=== PATIENT | female | born 1985 | race Caucasian/White ===

== ENCOUNTER 2019-01-22 20:55 | Emergency (ER) | payer BC ==
--- NOTE | 2019-01-22 22:34 | ER Document Report ---
ED Breast Problem - General Chief Complaint: Breast Problem Stated Complaint: LEFT SIDE PAIN Time Seen by Provider: 01/22/19 22:29 Notes: 33-year-old female with history of bilateral breast augmentation and presents to the emergency department with left breast pain x2 days that got acutely worse today. She called her plastic surgeon, Dr. Rodriguez, who recommended that he can see her first thing in the morning if she can obtain some pain control to bridge her. Her breast surgery was 3 years ago and there is no problems prior to. 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 She denies any fevers or chills, denies shortness of breath or central chest pain, nausea or vomiting, redness or swelling at the site of her left breast. She said the pain is acute and even when she self splints the pain is still there but that is the only thing that helps make it bearable. TRAVEL OUTSIDE OF THE [place] IN LAST 30 DAYS: No - Related Data Allergies/Adverse Reactions: No Known Drug Allergies Allergy (Verified 01/22/19 20:58) Past Medical History - Social History Smoking Status: Never Smoker Family History: None - Immunizations Hx Diphtheria, Pertussis, Tetanus Vaccination: Yes Review of Systems - Review of Systems Constitutional: See HPI EENT: No symptoms reported Cardiovascular: See HPI Respiratory: See HPI Gastrointestinal: See HPI Genitourinary: No symptoms reported Female Genitourinary: No symptoms reported Musculoskeletal: No symptoms reported Skin: See HPI Hematologic/Lymphatic: No symptoms reported Neurological/Psychological: No symptoms reported Physical Exam - Vital signs Vitals: Temp Pulse Resp BP Pulse Ox 98.0 F 113 H 22 H 130/80 H 99 01/22/19 21:00 01/22/19 21:00 01/22/19 21:00 01/22/19 21:00 01/22/19 21:00 Course - Re-evaluation Re-evalutation: 01/22/19 22:33 Nontoxic-appearing. There is no evidence of infection so I have no concern for abscess or cellulitis. Because of patient's history and upon inspection plan is pain control until she can see her plastic surgeon in the morning. I gave her strict return precautions. STable for discharge. 01/22/19 22:34 01/22/19 22:34 - Vital Signs Vital signs: Temp Pulse Resp BP Pulse Ox 98.0 F 113 H 22 H 130/80 H 99 01/22/19 21:00 01/22/19 21:00 01/22/19 21:00 01/22/19 21:00 01/22/19 21:00 Discharge - Discharge Clinical Impression: Breast pain, left Condition: Stable Disposition: HOME, SELF-CARE Additional Instructions: You were seen in the emergency department this evening for left breast pain. Because you have good close follow-up with Dr. Rodriguez and his recommendation was pain control prior to seeing him I am discharging you with the intention that you will see him first thing in the morning. I have given you a shot of Toradol 30 mg intramuscularly once and I am sending you home with a short course of pain medication called [place] with some Zofran to help with nausea. If your pain gets acutely worse, you are having respiratory distress, you develop a fever, or you have any other concerning symptoms please return to the emergency department.
[2019-01-22] MEDS ORDERED: KETOROLAC TROMETHAMINE 60 MG/2 ML SDV IM ONE (22:35)
[2019-01-22] MEDS ORDERED: HYDROCODONE/ACETAMINOPHEN 5-325 MG (6 TAB/ER DISP) PO PRN (22:35)
[2019-01-22] MEDS ORDERED: ACETAMINOPHEN 325 MG TABLET PO ONE (22:35)
[2019-01-22] MEDS ORDERED: ONDANSETRON ODT 4 MG TAB (6 TAB/ER DISP) PO PRN (22:36)
[2019-01-22 23:32] VITALS: BP 116/76
== END 2019-01-22 23:32 | disposition home or self-care (01) ==
LOC: ER 20:55
DX: N64.4 Mastodynia (principal)
CPT/HCPCS: 99283; 96372; J1885

== ENCOUNTER 2019-06-08 17:42 | Emergency (ER) | payer BC ==
[2019-06-08] MEDS ORDERED: PROMETHAZINE HCL INJ 25 MG/1 ML VIAL ONE (18:19)
[2019-06-08] MEDS ORDERED: PROMETHAZINE HCL INJ 25 MG/1 ML VIAL IV ONE (18:20)
[2019-06-08] MEDS ORDERED: NORMAL SALINE 1000 ML 1,000 ML IV ONE (18:21)
--- NOTE | 2019-06-08 18:24 | ER Document Report ---
ED General - General Chief Complaint: Palpitations Stated Complaint: PALPITATIONS Time Seen by Provider: 06/08/19 18:09 Primary Care Provider: SANTOS RDZ MD [Primary Care Provider] - Follow up as needed TRAVEL OUTSIDE OF THE [place] IN LAST 30 DAYS: No - HPI Notes: Patient is a 34-year-old female who presents emergency department for evaluation of palpitations. She was at work when they started approximately 3 PM. She was not doing anything out of the ordinary. She states she also started feeling nauseated after that. She denies any associated pain. She states she is just feeling "not well." Prior to that she been eating drinking normally. Normal urination and bowel movements. She denies any chest pain or shortness of breath. No coughing. - Related Data Allergies/Adverse Reactions: No Known Drug Allergies Allergy (Verified 06/08/19 18:55) amoxicillin Adverse Reaction (Verified 06/08/19 18:55) Home Medications: Prozac 20 mill grams daily Past Medical History - General Information source: Patient - Social History Smoking Status: Never Smoker Drug Abuse: None Family History: None Renal/ Medical History: Denies: Hx Peritoneal Dialysis Past Surgical History: Reports: Hx Breast Surgery - augmentation - Immunizations Hx Diphtheria, Pertussis, Tetanus Vaccination: Yes Review of Systems - Review of Systems Constitutional: See HPI EENT: No symptoms reported Cardiovascular: See HPI Respiratory: No symptoms reported Gastrointestinal: See HPI Genitourinary: No symptoms reported Musculoskeletal: No symptoms reported Skin: No symptoms reported Neurological/Psychological: No symptoms reported Physical Exam - Vital signs Vitals: BP 121/68 06/08/19 18:01 - Notes Notes: Patient is a 34-year-old female who appears her stated age, no acute distress. She is actively vomiting in the room. Vital signs reviewed, please refer to chart. Head is normocephalic, atraumatic. Pupils equal round, reactive to light. Neck is supple without meningismus. Heart is mildly tachycardic with normal S1-S2. Lungs are clear to auscultation bilaterally. Abdomen is soft, nontender, normoactive bowel sounds throughout. Extremities without cyanosis, clubbing. Posterior calves are nontender. Peripheral pulses are equal. Skin is warm and dry. Patient is awake, alert, neurological exam is nonfocal. Course - Re-evaluation Re-evalutation: 06/08/19 18:23 Patient presents emergency department for evaluation of palpitations. On arrival she is actively vomiting. Her EKG reveals a borderline prolonged QT interval. Given this information I am inclined to treat her with a different antiemetic and Zofran. She is given 25 mg of IV Phenergan, piggyback on 12 a liter of normal saline. Laboratory investigations obtained, we will continue to monitor. 06/08/19 20:51 Patient feeling significantly improved. Heart rate in the 70s. No significant ectopy or abnormalities on monitor. Her laboratory investigations are unremarkable. She is feeling significantly improved. My suspicion is that this patient has a viral illness at this time. We will send her home with 4 mg ODT Zofran. She is told to try clear liquids, rest. Follow-up with primary care this week. Return to the ED with worsening or new concerning symptoms of any sort. - Vital Signs Vital signs: Temp Pulse Resp BP Pulse Ox 15 130/75 H 99 06/08/19 19:01 06/08/19 19:01 06/08/19 19:01 - Laboratory Result Diagrams: 06/08/19 18:15 06/08/19 18:15 Laboratory results interpreted by me: 06/08/19 06/08/19 18:15 19:38 Glucose 117 H Urine Blood SMALL H Urine Ascorbic Acid 40 H - EKG Interpretation by Me Additional EKG results interpreted by me: 06/08/19 20:52 Sinus tachycardia with rate of 100 bpm. Normal axis and intervals. Borderline prolonged QT interval. No acute ST changes concerning for ischemia or infarct ion. Discharge - Discharge Clinical Impression: Palpitations Nausea and vomiting Qualifiers: Vomiting type: unspecified Vomiting Intractability: non-intractable Qualified Code(s): R11.2 - Nausea with vomiting, unspecified Condition: Stable Disposition: HOME, SELF-CARE Instructions: Palpitations (Irregular or Rapid Heartrate) ([facility]), Vomiting ([facility]) Additional Instructions: Rest, stay well-hydrated with small, frequent sips of fluids. Zofran as needed for nausea. Follow-up with your primary care physician this week. If you develop pain, difficulty breathing, worsening symptoms of any sort, return immediately to the emergency department for evaluation. Referrals: SANTOS RDZ MD [Primary Care Provider] - Follow up as needed
[2019-06-08 19:20] LABS: ABSOLUTE BASOPHILS # (AUTO) 0.1 10^3/uL (0.0-0.2); ABSOLUTE EOSINOPHILS # (AUTO) 0.2 10^3/uL (0.0-0.6); ABSOLUTE LYMPHOCYTES (AUTO) 2.2 10^3/uL (0.5-4.7); ABSOLUTE MONOCYTES (AUTO) 0.8 10^3/uL (0.1-1.4); ABSOLUTE NEUT (AUTO) 4.7 10^3/uL (1.7-8.2); BASOPHILS % (AUTO) 0.7 % (0-2); EOSINOPHILS % (AUTO) 2.1 % (0-6); HEMATOCRIT 36.7 % (36.0-47.0); HEMOGLOBIN 12.2 g/dL (12.0-15.5); LYMPHOCYTES % (AUTO) 28.1 % (13-45); MEAN CORPUSCULAR HEMOGLOBIN 28.7 pg (27.0-33.4); MEAN CORPUSCULAR HGB CONC 33.4 g/dL (32.0-36.0); MEAN CORPUSCULAR VOLUME 86 fl (80-97); MONOCYTES % (AUTO) 9.5 % (3-13); PLATELET COUNT 339 10^3/uL (150-450); RED BLOOD COUNT 4.26 10^6/uL (3.72-5.28); RED CELL DISTRIBUTION WIDTH 13.7 % (11.5-14.0); SEGMENTED NEUTROPHILS % (AUTO) 59.6 % (42-78); TOTAL CELLS COUNTED % (AUTO) 100 %; WHITE BLOOD COUNT 7.9 10^3/uL (4.0-10.5)
[2019-06-08 19:36] LABS: ALBUMIN 4.5 g/dL (3.5-5.0); ALKALINE PHOSPHATASE 75 U/L (38-126); ANION GAP 9 (5-19); ASPARTATE AMINO TRANSFERASE 20 U/L (14-36); BILIRUBIN,DIRECT 0.1 mg/dL (0.0-0.4); BILIRUBIN,TOTAL 0.3 mg/dL (0.2-1.3); BLOOD UREA NITROGEN 12 mg/dL (7-20); CALCIUM 9.3 mg/dL (8.4-10.2); CARBON DIOXIDE 27 mmol/L (22-30); CHLORIDE 101 mmol/L (98-107); GLUCOSE 117 mg/dL (75-110); POTASSIUM 3.6 mmol/L (3.6-5.0); TOTAL PROTEIN 7.1 g/dL (6.3-8.2)
[2019-06-08 19:57] LABS: APPEARANCE,URINE SLIGHTLY-CLOUDY; BILIRUBIN,URINE NEGATIVE (NEGATIVE); COLOR,URINE YELLOW; GLUCOSE, URINE NEGATIVE (NEGATIVE); KETONES,URINE NEGATIVE (NEGATIVE); LEUKOCYTE ESTERASE,URINE NEGATIVE (NEGATIVE); NITRITE,URINE NEGATIVE (NEGATIVE); PROTEIN,URINE NEGATIVE (NEGATIVE); URINE SPECIFIC GRAVITY 1.017; UROBILINOGEN,URINE NEGATIVE mg/dL (<2.0)
[2019-06-08] MEDS ORDERED: ONDANSETRON ODT 4 MG TAB (6 TAB/ER DISP) PO PRN (20:52)
[2019-06-08 21:10] VITALS: BP 128/73
--- NOTE | 2019-06-08 21:24 | EKG REPORT ---
SEVERITY:- BORDERLINE ECG - SINUS TACHYCARDIA INFERIOR Q WAVES, PROBABLY NORMAL VARIATION BORDERLINE PROLONGED QT INTERVAL : Confirmed by: Dom Rick MD 08-Jun-2019 21:23:46
== END 2019-06-08 21:17 | disposition home or self-care (01) ==
LOC: ER 17:42
DX: R00.2 Palpitations (principal); R11.2 Nausea with vomiting, unspecified
CPT/HCPCS: 93005; 36415; 83690; 83735; 84443; 85025; 81025; 80053; 81001; 84484; 93010; J2550; J7030

== ENCOUNTER 2020-08-27 15:09 | Emergency (ER) | payer BC ==
[2020-08-27] MEDS ORDERED: RINGERS SOLUTION,LACTATED 1,000 ML IV ONE (15:41)
--- NOTE | 2020-08-27 15:45 | ER Document Report ---
ED Medical Screen (RME) - General Chief Complaint: Nausea/Vomiting/Diarrhea Stated Complaint: NAUSEA,VOMITING,DIARRHEA,FEVER Time Seen by Provider: 08/27/20 15:34 Primary Care Provider: SANTOS RDZ MD [Primary Care Provider] - Follow up as needed Mode of Arrival: Ambulatory Information source: Patient, Relative Notes: Patient is a 35-year-old female comes emergency room complaining of a 12-day onset of nausea vomiting diarrhea and some mild abdominal pain. Patient states she is attempted to do everything she could think of to stay out of the ER but is getting to the point where she cannot tolerate any volume of fluids at all. Patient went to the urgent care center in [facility] this past week she was been tested twice for the coronavirus the most recent one came back negative as of yesterday. She was also tested for the influenza but that test has not come back yet according to patient and rapid strep was negative. Patient denies any other medical problems. She does state that she has lost 10 pounds without trying in the past 12 days. She is unable to keep any water or food down. Last menstrual period was August 01 she is on no control but her has had a vasectomy. Physical examination: Patient is a well-nourished well-developed 35-year-old female no apparent distress on examination. Cardiac: Patient displays a regular rate and rhythm at 80 bpm on monitor and no murmurs auscultated. Blood pressure is 122/72 and her temp is 98.2. Lungs: Bilateral breath sounds increased throughout no rhonchi rales or wheezes auscultated. Abdomen: In the sitting position patient has no tenderness to palpation in any quadrant of the lower abdomen or upper abdomen on palpation in the sitting position. I have greeted and performed a rapid initial assessment of this patient. A comprehensive ED assessment and evaluation of the patient, analysis of test results and completion of the medical decision making process will be conducted by additional ED providers. Dictation of this chart was performed using voice recognition software; therefore, there may be some unintended grammatical errors. TRAVEL OUTSIDE OF THE [place] IN LAST 30 DAYS: No - Related Data Allergies/Adverse Reactions: No Known Drug Allergies Allergy (Verified 06/08/19 18:55) amoxicillin Adverse Reaction (Verified 06/08/19 18:55) Past Medical History Renal/ Medical History: Denies: Hx Peritoneal Dialysis Past Surgical History: Reports: Hx Breast Surgery - augmentation - Immunizations Hx Diphtheria, Pertussis, Tetanus Vaccination: Yes Physical Exam - Vital signs Vitals: Temp Pulse Resp BP Pulse Ox 98.2 F 80 16 122/72 99 08/27/20 15:22 08/27/20 15:22 08/27/20 15:22 08/27/20 15:22 08/27/20 15:22 Course - Vital Signs Vital signs: Temp Pulse Resp BP Pulse Ox 98.2 F 80 16 122/72 99 08/27/20 15:22 08/27/20 15:22 08/27/20 15:22 08/27/20 15:22 08/27/20 15:22 Doctor's Discharge - Discharge Referrals: SANTOS RDZ MD [Primary Care Provider] - Follow up as needed
[2020-08-27 16:05] LABS: ABSOLUTE BASOPHILS # (AUTO) 0.1 10^3/uL (0.0-0.2); ABSOLUTE LYMPHOCYTES (AUTO) 2.6 10^3/uL (0.5-4.7); ABSOLUTE MONOCYTES (AUTO) 0.8 10^3/uL (0.1-1.4); ABSOLUTE NEUT (AUTO) 6.1 10^3/uL (1.7-8.2); BASOPHILS % (AUTO) 0.7 % (0-2); EOSINOPHILS % (AUTO) 0.5 % (0-6); HEMATOCRIT 39.7 % (36.0-47.0); HEMOGLOBIN 13.7 g/dL (12.0-15.5); LYMPHOCYTES % (AUTO) 27.5 % (13-45); MEAN CORPUSCULAR HGB CONC 34.5 g/dL (32.0-36.0); MEAN CORPUSCULAR VOLUME 84 fl (80-97); PLATELET COUNT 386 10^3/uL (150-450); RED BLOOD COUNT 4.73 10^6/uL (3.72-5.28); RED CELL DISTRIBUTION WIDTH 13.1 % (11.5-14.0); SEGMENTED NEUTROPHILS % (AUTO) 63.3 % (42-78); TOTAL CELLS COUNTED % (AUTO) 100 %; WHITE BLOOD COUNT 9.6 10^3/uL (4.0-10.5)
[2020-08-27 16:21] LABS: APPEARANCE,URINE CLEAR; COLOR,URINE YELLOW
[2020-08-27 16:22] LABS: BILIRUBIN,URINE NEGATIVE (NEGATIVE); GLUCOSE, URINE NEGATIVE (NEGATIVE); KETONES,URINE 25 mg/dL (NEGATIVE); LEUKOCYTE ESTERASE,URINE NEGATIVE (NEGATIVE); NITRITE,URINE NEGATIVE (NEGATIVE); PROTEIN,URINE NEGATIVE (NEGATIVE); URINE SPECIFIC GRAVITY 1.008; UROBILINOGEN,URINE NEGATIVE mg/dL (<2.0)
[2020-08-27 16:23] LABS: ADD MANUAL MICROSCOPIC YES
[2020-08-27 16:24] LABS: ALBUMIN 4.8 g/dL (3.5-5.0); ALKALINE PHOSPHATASE 73 U/L (38-126); ANION GAP 11 (5-19); ASPARTATE AMINO TRANSFERASE 25 U/L (14-36); BACTERIA,URINE TRACE /HPF; BILIRUBIN,TOTAL 0.5 mg/dL (0.2-1.3); BLOOD UREA NITROGEN 4 mg/dL (7-20); CALCIUM 9.8 mg/dL (8.4-10.2); CARBON DIOXIDE 27 mmol/L (22-30); CHLORIDE 101 mmol/L (98-107); GLUCOSE 113 mg/dL (75-110); POTASSIUM 3.9 mmol/L (3.6-5.0); TOTAL PROTEIN 7.9 g/dL (6.3-8.2); WBC,URINE 0-1 /HPF
--- NOTE | 2020-08-27 21:10 | ER Document Report ---
ED GI/ - General Chief Complaint: Nausea/Vomiting Stated Complaint: NAUSEA,VOMITING,DIARRHEA,FEVER Time Seen by Provider: 08/27/20 15:34 Primary Care Provider: SANTOS RDZ MD [Primary Care Provider] - Follow up as needed Mode of Arrival: Ambulatory TRAVEL OUTSIDE OF THE [place] IN LAST 30 DAYS: No - HPI Notes: 08/27/20 21:02 Patient is a 35-year-old female with a past medical history of anxiety who presents with vomiting and diarrhea. Symptoms have been present for about 12 days. She states she has 4 loose bowel movements a day. She vomits about once a day. She is drinking plenty of water and staying hydrated. She states she has been eating the BRAT diet. Patient had stool cultures done with her PCP but these are not back yet. She denies any bloody diarrhea. No fevers or chills. No cough or shortness of breath. She has been Covid tested this week by her PCP also and that was negative. States that she is here tonight because the symptoms are not improving. 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 She has had a gallbladder ultrasound with him in June that was normal. He states that if her symptoms do not improve and her stool cultures are normal, he will likely do a colonoscopy. - Related Data Allergies/Adverse Reactions: No Known Drug Allergies Allergy (Verified 06/08/19 18:55) amoxicillin Adverse Reaction (Verified 06/08/19 18:55) Home Medications: Zofran, Past Medical History - General Information source: Patient, Relative - Social History Smoking Status: Never Smoker Family History: None Renal/ Medical History: Denies: Hx Peritoneal Dialysis Past Surgical History: Reports: Hx Breast Surgery - augmentation - Immunizations Hx Diphtheria, Pertussis, Tetanus Vaccination: Yes Review of Systems - Review of Systems Notes: CONSTITUTIONAL: No fever. Positive for weight loss and fatigue. SKIN: No rash. HENT: No congestion, ear pain, or sore throat. CARDIOVASCULAR: No chest pain or edema. RESPIRATORY: No cough, shortness of breath, congestion, or wheezing. GASTROINTESTINAL: Positive for achy abdominal pain, nausea, vomiting, diarrhea. GENITOURINARY: No dysuria. MUSCULOSKELETAL: No joint pain or swelling. LYMPHATIC: No swollen glands. NEUROLOGIC: No seizures. No headache, focal weakness or sensory changes. HEMATOLOGIC: No unusual bruising or bleeding. PSYCHIATRIC: No depression or anxiety. Physical Exam - Vital signs Vitals: Temp Pulse Resp BP Pulse Ox 98.2 F 80 16 122/72 99 08/27/20 15:22 08/27/20 15:22 08/27/20 15:22 08/27/20 15:22 08/27/20 15:22 - General General appearance: Appears well In distress: None Notes: VITAL SIGNS: Within normal limits. GENERAL: No acute distress, non-toxic appearance. Appears well-hydrated. HEAD: Normal with no signs of head trauma. EYES: Conjunctiva normal, no discharge. EARS: Hearing grossly intact. NECK: Normal range of motion, no tenderness, supple, no lymphadenopathy, No adenopathy, no JVD. CHEST: Clear breath sounds bilaterally. No wheezes, rales, or rhonchi. CARDIAC: Regular rate and rhythm. S1 and S2, without murmurs, gallops, or rubs. VASCULAR: No Edema. ABDOMEN: Normal and soft with no tenderness, no masses or pulsatile masses. No guarding or rigidity. GASTROINTESTINAL: Bowel sounds normal GENITOURINARY: Normal, No tenderness MUSCULOSKELETAL: Good range of motion of all major joints. Extremities without clubbing, cyanosis or edema. NEUROLOGICAL: Alert and oriented x 3. No focal sensory or strength deficits. Speech normal. Follows commands appropriately. PSYCHIATRIC: Normal Affect, judgement and mood. SKIN: Normal appearance with no rashes or lesions. Course - Re-evaluation Re-evalutation: 08/27/20 21:11 Patient's lab work is unremarkable. Her abdominal exam is benign. She has no bloody stools or fever. I did have a long discussion with her and her mother about her symptoms. Patient requested a CT scan as her symptoms have been going on for a significant amount of time. CT scan was nonacute. I informed her of the small renal stone. I educated patient on taking probiotics and eating yogurt. I told her to make sure she is staying hydrated and eating light meals. I did discuss consideration of antibiotics as her symptoms have been going on for over a week. Patient stated she did want to try a short course of antibiotics. I gave her 3 days of azithromycin. She was informed not to take this with the Zofran due to the risk of prolonged QT. She is very agreeable to this. Patient was told to follow-up on her stool cultures. She was also told to call GI. Strict return precautions provided. 08/28/20 05:05 - Vital Signs Vital signs: Temp Pulse Resp BP Pulse Ox 99.0 F 80 16 114/74 100 08/28/20 00:05 08/27/20 15:22 08/27/20 21:05 08/28/20 00:05 08/28/20 00:05 - Laboratory Results Result Diagrams: 08/27/20 15:48 08/27/20 15:48 Laboratory Results Interpreted: 08/27/20 08/27/20 15:48 15:48 BUN 4 L Glucose 113 H Urine Ketones 25 H Urine Blood SMALL H Critical Laboratory Results Reviewed: No Critical Results - Radiology Results Critical Radiology Results Reviewed: No Critical Results Discharge - Discharge Clinical Impression: Vomiting and diarrhea Condition: Stable Disposition: HOME, SELF-CARE Instructions: Diarrhea, Nonspecific ([facility]), Vomiting ([facility]) Additional Instructions: Your work-up today is reassuring. Please take [id number] probiotics or yogurt. Make sure you are staying hydrated. Please follow-up on the stool cultures with your PCP. Return to the ER immediately for any change or worsening of symptoms. Prescriptions: Azithromycin 500 mg PO DAILY 3 Days #3 tablet Referrals: SANTOS RDZ MD [Primary Care Provider] - Follow up as needed
[2020-08-27] MEDS ORDERED: ONDANSETRON HCL INJ/PF 4 MG/2 ML SDV IV ONE (21:12)
[2020-08-27] MEDS ORDERED: PROMETHAZINE HCL 25 MG TABLET PO ONE (21:20)
--- NOTE | 2020-08-27 22:27 | RADIOLOGY REPORT (SQ) ---
EXAM DESCRIPTION: CT ABD/PELVIS WITH IV ONLY CLINICAL HISTORY: 35 years Female; achy, diffuse pain, diarrhea, vomiting TECHNIQUE: CT of the abdomen and pelvis with intravenous contrast.. Oral contrastWas not used. Delayed imaging of the abdomen and pelvis was performed. All CT scans at this facility use dose modulation, iterative reconstruction, and/or weight based dosing when appropriate to reduce radiation dose to as low as reasonably achievable. This exam was performed according to our department optimization program which includes automated exposure control, adjustment of the mA and/or kv according to patient size and/or use of iterative reconstruction technique. COMPARISON: Unenhanced CT scan of the abdomen and pelvis July 26, 2013. The report for this exam is not available. FINDINGS: Lower chest:The lung bases are clear. The visualized portion of heart and great vessels are normal. Abdomen: Liver and biliary tree:The liver and gallbladder appear normal. Portal vein and hepatic veins are patent. No biliary dilatation. Pancreas: Normal Spleen:Within normal limits Kidneys: Kidneys are normal in size shape and position. 2 mm nonobstructing stone is present in the upper pole of the left kidney. No solid mass. No perinephric abnormality. There is symmetric renal enhancement. On delayed images there is symmetric contrast excretion and the ureters are normal. Bilateral ureteral jets are seen. No obstruction. Adrenal glands:Within normal limits Vascular structures:Within normal limits Retroperitoneum: No mass or lymphadenopathy Abdominal wall: normal GI: There is diverticula in the colon. No evidence of diverticulitis. Minimal stool is present in the colon. No bowel obstruction. No inflammation. Appendix: The appendix appears normal. General: No free air. No free fluid Pelvis: Lymph nodes: No mass or lymphadenopathy Bladder: Unremarkable. Pelvis: No pelvic mass or adenopathy. Bones: No acute bone findings. IMPRESSION: 1. Small nonobstructing left kidney stone. 2. No acute process in the abdomen or pelvis.
[2020-08-28 00:13] VITALS: BP 114/74
== END 2020-08-28 00:14 | disposition home or self-care (01) ==
LOC: ER 15:09
DX: R11.2 Nausea with vomiting, unspecified (principal); R19.7 Diarrhea, unspecified; N20.0 Calculus of kidney; R10.9 Unspecified abdominal pain; Z79.899 Other long term (current) drug therapy
CPT/HCPCS: 99285; 96360; 96361; 36415; 87086; 83690; 85025; 81025; 80053; 81001; 74177; J7120

== ENCOUNTER → 2020-09-08 | Outpatient (CLI) | payer BC ==
--- NOTE | 2020-09-08 16:05 | RADIOLOGY REPORT (SQ) ---
EXAM DESCRIPTION: NM HIDA SCAN WITH CCK IMAGES COMPLETED DATE/TIME: 09/08/2020 3:06 pm REASON FOR STUDY: RUQ PAIN R10.11 RIGHT UPPER QUADRANT PAIN R11.0 NAUSEA COMPARISON: None. RADIONUCLIDE AND DOSE: DOSAGE RADIONUCLIDE: 5 millicuries Tc99m Mebrofenin. DOSAGE CCK: 1.3 micrograms. DOSAGE MORPHINE: Not required. The route of agent administration: Intravenous TECHNIQUE: Serial imaging right upper quadrant up to 60 minutes following injection of radionuclide. CCK injected after gallbladder visualized. LIMITATIONS: None. FINDINGS: LIVER: Normal visualization without areas of photopenia. INTRAHEPATIC BILE DUCTS: Normal size and no delay in visualization. COMMON BILE DUCT: Normal without dilatation. GALLBLADDER: Normal visualization. Calculated ejection fraction of 72%. Normal range is greater th an 35%. PHYSICAL RESPONSE: Patients presenting complaint was not reproduced. OTHER: No other significant finding. IMPRESSION: NORMAL STUDY WITHOUT CYSTIC OR COMMON DUCT OBSTRUCTION. NORMAL GALLBLADDER EJECTION FRA CTION. NO EVIDENCE FOR BILIARY DYSKINESIS. TECHNICAL DOCUMENTATION: JOB ID: [id number] 2010 [employer]- All Rights Reserved Reading location - IP/workstation name: [email or web address]
== END ==
LOC: RAD 12:40
PROVIDERS: ATTEND Internal Medicine Gastroenterology
DX: R10.11 Right upper quadrant pain (principal); R11.0 Nausea
CPT/HCPCS: 78227; J2805; A9537; Q9969

== ENCOUNTER → 2020-09-19 | Outpatient (CLI) | payer BC ==
[~2020-09-19] MED LIST: COVID-19 VACCINE (PFIZER)/PF 30 MCG/0.3 ML VIAL IM ONE; EPINEPHRINE INJ/PF 1 MG/1 ML AMPULE IM PRN
== END ==
LOC: EMPHEALTH 13:59
PROVIDERS: ATTEND Internal Medicine
DX: Z23 Encounter for immunization (principal)
CPT/HCPCS: 91300